=== PATIENT | female | born 1970 | race Caucasian/White ===

== ENCOUNTER 2017-09-26 14:35 | Outpatient (CLI) | payer BC ==
--- NOTE | 2017-09-26 15:22 | RAD ---
CERVICAL SPINE AP AND LATERAL STANDARD: Date: 09/26/17 HISTORY: Right shoulder pain and numbness. COMPARISON: None. FINDINGS: Lateral radiographs of cervical spine were obtained in neutral, flexion, and extension. Mild degenera tive disc space height loss C4-5. Peripherally calcified annulus fibrosis at C5-6 and C6-7. Mild narr owing C5-6 and C6-7 disc spaces. Mild facet arthrosis C6-7. No significant translation with flexion or extension. IMPRESSION: Mild spondylosis without significant translation with flexion or extension. No spondylolisthesis. POS: [facility]
== END 2017-09-26 14:36 | disposition home or self-care (01) ==
LOC: TBSIIMAG 14:35
PROVIDERS: ATTEND Neurological Surgery
DX: M47.22 Other spondylosis with radiculopathy, cervical region (principal)
CPT/HCPCS: 72040

== ENCOUNTER 2018-12-24 10:07 | Outpatient (CLI) | payer BC ==
--- NOTE | 2018-12-24 11:18 | MRI ---
Exam: MRI cervical spine without contrast HISTORY: Radiculopathy. Neck pain radiates down the right extremity. Right hand numbness. COMPARISON: None FINDINGS: Straightening of normal cervical lordosis is presumed be positional. Appropriate T1 marrow signal in tensity of the cervical vertebrae. Vertebral body height is maintained. No fracture. No significant STIR hyperintensity to suggest vertebral body edema or ligamentous injury Visualized brain parenchyma, cervical medullary junction, cervical cord and the upper thoracic cord h ave a normal size and signal intensity C2-C3: No significant central canal stenosis or significant neural foraminal narrowing C3-C4: Central disc protrusion effaces the ventral midline subarachnoid space. There is deformity the midline cervical cord without cord hyperintensity. Moderate central canal stenosis. Mild bilateral foraminal narrowing due to uncovertebral hypertrophy. C4-C5: Central disc protrusion deforms the ventral thecal sac. There is deformity the midline cervica l cord with at least mild to moderate central canal stenosis. Mild bilateral neural foraminal narrowing due to uncovertebral hypertrophy. C5-C6: Central/left paracentral disc protrusion. Mass effect upon the midline and left aspect of the cord, without cord hyperintensity. Moderate central canal stenosis. Mild bilateral foraminal narrowing due to uncovertebral hypertrophy C6-C7: No significant central canal stenosis or significant foraminal narrowing C7-T1: No significant central canal stenosis or significant foraminal narrowing IMPRESSION: Degenerative changes cervical spine from C3-C4 through C5-C6 as described above. Deformity of the ce rvical cord without cord hyperintensity. Moderate central canal stenosis at C3-C4 and C5-C6. [id number] central canal stenosis at C4-C5. Transcribed Date/Time: 12/24/2018 12:42 PM
--- NOTE | 2018-12-24 12:26 | RAD ---
CERVICAL SPINE SERIES 3 VIEWS WITH FLEXION AND EXTENSION: Date: 12/24/18 HISTORY: Neck pain, numbness into right hand. FINDINGS: Vertebral bodies are normal in height. Small osteophytes are seen at the C4-5 and C5-6 levels, with m inimal disc narrowing at C4-5. No abnormal motion seen in flexion or extension. IMPRESSION: Minimal arthritic changes of the spine. POS: [facility]
== END 2018-12-24 10:08 | disposition home or self-care (01) ==
LOC: SCSMRI 10:07
PROVIDERS: ATTEND Neurological Surgery
DX: M50.10 Cervical disc disorder with radiculopathy, unspecified cervical region (principal); M47.22 Other spondylosis with radiculopathy, cervical region; M48.02 Spinal stenosis, cervical region; G95.89 Other specified diseases of spinal cord
CPT/HCPCS: 72040; 72141

== ENCOUNTER 2023-11-08 07:33 | Outpatient (CLI) | payer BC | END 2023-11-08 07:34 | disposition home or self-care (01) | LOC: SCSMRI 07:33 | PROVIDERS: ATTEND Family Medicine | DX: M25.512 Pain in left shoulder (principal); M48.02 Spinal stenosis, cervical region; R20.0 Anesthesia of skin; R29.898 Other symptoms and signs involving the musculoskeletal system; M75.82 Other shoulder lesions, left shoulder; M75.52 Bursitis of left shoulder; M19.012 Primary osteoarthritis, left shoulder; M47.812 Spondylosis without myelopathy or radiculopathy, cervical region | CPT/HCPCS: 72141 ==